=== PATIENT | male | born 1985 | race Two or more races ===

== ENCOUNTER 2023-10-24 22:55 | Emergency (ER) | payer MEDICAID ==
[~2023-10-24] VITALS: Ht 188 cm; Wt 72.1 kg
[2023-10-25] MEDS: IBUPROFEN 600 MG TABLET PO ONE (01:49)
[2023-10-25] MEDS ORDERED: IBUPROFEN 600 MG TABLET ONE (01:49)
[2023-10-25 02:26] VITALS: BP 137/83; TEMP 98.5; O2SAT 99
== END 2023-10-25 02:33 | disposition home or self-care (01) ==
LOC: ER 22:58
DX: S80.212A Abrasion, left knee, initial encounter (principal); M79.642 Pain in left hand; Y04.0XXA Assault by unarmed brawl or fight, initial encounter; Y93.89 Activity, other specified; Y92.89 Other specified places as the place of occurrence of the external cause; Y99.8 Other external cause status
CPT/HCPCS: 73130-TC; 73564-TC